=== PATIENT | male | born 1980 | race Caucasian/White ===

== ENCOUNTER 2018-05-16 09:49 | Inpatient (IN) | payer OTHER ==
[~2018-05-16] VITALS: Ht 180.3 cm; Wt 86.9 kg
[2018-05-16 09:51] VITALS: BP_SYST 146
--- NOTE | 2018-05-16 09:57 | NUR ---
Placed in room 1. Placed on clinical research monitor, blood pressure machine and pulse oximeter. To gown for exam. Side rails up. Report given to Julia GARCIA.
--- NOTE | 2018-05-16 10:10 | NUR ---
ER Dr. Abrams at bedside examining patient.
[2018-05-16] MEDS ORDERED: NACL 0.9% 1,000 ML IV ONE (10:15)
[2018-05-16] MEDS ORDERED: methylPREDNISolone SOD SUCC/PF 62.5 MG/ML VIAL IVP ONE (10:15)
[2018-05-16] MEDS ORDERED: MORPHINE 4 MG/ML INJ. SYRINGE IVP ONE ×2 (10:15→11:00)
[2018-05-16] MEDS ORDERED: DIPHENHYDRAMINE INJ 50 MG/ML VIAL IVP ONE ×2 (10:15→13:00)
[2018-05-16] MEDS ORDERED: PANTOPRAZOLE SODIUM 40 MG/VIAL (PROTONIX) IVP ONE (10:15)
--- NOTE | 2018-05-16 10:15 | NUR ---
Pt presents to ED c/o abdmonal pain and itchiness from allergic reaction. Pt h/o anxiety and GI bleed and allergy to exposure to peanuts.
[2018-05-16 10:52] LABS: BASOPHILS # (AUTO) 0.1 K/uL (0.0-0.2); EOSINOPHILS % (AUTO) 0.2 % (0.0-4.0); HEMOGLOBIN 8.7 g/dL (14.0-18.0); LYMPHOCYTES # (AUTO) 1.5 K/uL (1.0-5.5); LYMPHOCYTES % (AUTO) 16.3 % (20.5-51.5); MEAN CORPUSCULAR HEMOGLOBIN 26 pg (27-31); MEAN CORPUSCULAR HGB CONC 32 % (32-36); MEAN CORPUSCULAR VOLUME 80 fL (79.0-98.0); MONOCYTES # (AUTO) 0.7 K/uL (0.0-1.0); MONOCYTES % (AUTO) 7.4 % (1.7-9.3); NEUTROPHILS # (AUTO) 7.1 K/uL (1.8-7.7); NEUTROPHILS % (AUTO) 75.1 % (40.0-70.0); PLATELET COUNT (AUTO) 275 K/uL (130-430); RED BLOOD CELL COUNT(AUTO) 3.38 MIL/uL (4.2-6.2); RED CELL DISTRIBUTION WIDTH 14.6 % (9.0-15.0); WHITE BLOOD COUNT (AUTO) 9.4 K/uL (4.8-10.8)
[2018-05-16 10:58] LABS: PROTHROMBIN TIME 9.7 SECS (9.5-12.5)
[2018-05-16 11:00] LABS: CALCIUM 8.7 mg/dL (8.4-11.0); CREATININE 0.82 mg/dL (0.55-1.30); POTASSIUM 3.1 mmol/L (3.5-5.1)
--- NOTE | 2018-05-16 11:00 | NUR ---
Pt medicate for painand allergic reaction.
[2018-05-16 11:05] LABS: ALBUMIN 3.4 g/dL (3.4-4.8); TOTAL BILIRUBIN 0.3 mg/dL (0.0-1.0)
[2018-05-16] MEDS ORDERED: LORazepam 2 MG/ML VIAL (FOR ER USE) IVP ONE ×2 (12:00→13:00)
--- NOTE | 2018-05-16 12:00 | NUR ---
Pt medicated for pain and anxiety. Pt tolerated well.Continuing to monitor.
[2018-05-16] MEDS ORDERED: POTASSIUM CHLORIDE 40 MEQ in NS 250 ML IV ONE (12:15)
--- NOTE | 2018-05-16 12:20 | NUR ---
Patient will be admitted to care of . Admitted to Telemetry unit. Will go to room 126B. Belongings list completed. Summary report printed. Report will be given at bedside.
[2018-05-16] MEDS ORDERED: MORPHINE 2 MG/ML INJ. SYRINGE IVP ONE ×2 (12:30→14:15)
[2018-05-16 13:20] LABS: BILIRUBIN,URINE NEGATIVE (NEGATIVE); BLOOD, URINE NEGATIVE (NEGATIVE); CLARITY/URINE CLEAR (CLEAR); COLOR,URINE YELLOW (YELLOW); GLUCOSE,URINE NEGATIVE (NEGATIVE); KETONES,URINE NEGATIVE (NEGATIVE); LEUKOCYTE ESTERASE ,URINE NEGATIVE (NEGATIVE); NITRITE, URINE NEGATIVE (NEGATIVE); PROTEIN URINE NEGATIVE (NEGATIVE); UROBILINOGEN,URINE 0.2 (0.2-1.0)
[2018-05-16 13:42] LABS: BENZODIAZEPINE, URINE POSITIVE (NEG <=150); OPIATE, URINE POSITIVE (NEG <=100)
[2018-05-16 13:43] LABS: BARBITURATE, URINE NEGATIVE (NEG <=200); CANNABINOID, URINE NEGATIVE (NEG <=50); COCAINE, URINE NEGATIVE (NEG <=150); METHAMPHETAMINES SCREEN,URINE NEGATIVE (NEG <=500); PHENCYCLIDINE SCREEN,URINE NEGATIVE (NEG <=25); UR TRICYCLIC ANTIDEPRESSANTS NEGATIVE (NEG <=300); URINE AMPHETAMINE NEGATIVE (NEG <=500); URINE METHADONE NEGATIVE (NEG <=200); URINE OXYCODONE SCREEN NEGATIVE (NEG <=100); URINE PROPOXYPHENE SCREEN NEGATIVE (NEG <=300)
--- NOTE | 2018-05-16 13:43 | NUR ---
ADMISSION NOTE Received patient from ER via gurney. Patient admitted with diagnosis of upper and lower gi bleed and anemia. Patient is awake, alert, oriented X4. Patient oriented to hospital room, call light, toileting, pain management and safety-teach back done. Personal belongings checked and Belongings List documented. Call light within reach.
--- NOTE | 2018-05-16 13:44 | NUR ---
INITIAL NOTE RECEIVED PT IN BED, NO S/S OF DISTRESS OR SOB NOTED, PT HAS PAIN IN ABDOMEN /10, STABBING, PT IN STABLE CONDITION, C/O ANXIETY AND FEELING LIKE THROAT IS CLOSING, PT ABLE TO SPEAK WITH NO DIFFICULTY, NO RASH OR REDNESS OR SWELLING NOTED ON NECK OR FACE. PT ANGRY AND UNCOOPERATIVE WITH ASSESSMENT FROM NURSE. ATTEMPTED TO DISCUSS POC WITH PT BUT HE KEEPS INTERRUPTING NURSE AND USING FOUL LANGUAGE, ANGRY. BED AT LOWEST POSITION, CALL LIGHT WITHIN REACH, SAFETY PRECAUTIONS IN PLACE, NO ACTIVE BLEEDING NOTED AT THIS TIME.
--- NOTE | 2018-05-16 13:45 | NUR ---
CALL DR JOANIE HILL, AWAITING CALL BACK FOR ORDERS. Addendum: 05/16/18 at 1348 by Macie Ramirez RN SPOKE WITH MADE AWARE OF H/H PER MD TO HOLD OFF ON BLOOD TRANSFUSION AND MAKE PT ON NPO.
[2018-05-16 13:46] VITALS: BP_SYST 143
--- NOTE | 2018-05-16 14:02 | NUR ---
CONSULT GI GI BLEED DR AGARWAL [phone] DR SMITH FILE SYSTEM INSTALLER S/W [facility] OFFICE @[id number]
--- NOTE | 2018-05-16 14:16 | NUR ---
MD CALL SPOKE WITH DR NAIR ABOUT PAIN AND PT STATING HIS THROAT IS CLOSING AND HE IS ANXIOUS, MD GAVE ORDER FOR MORPHINE 2 MG TIMES ONE AND THAT SHE WOULD PUT THE REST OF THE ORDERS IN.
[2018-05-16] MEDS ORDERED: ALPR2TAB2 PO (14:18)
[2018-05-16] MEDS ORDERED: SERT50TA PO (14:18)
[2018-05-16] MEDS ORDERED: MORPHINE 2 MG/ML INJ. SYRINGE ONE (14:18)
[2018-05-16] MEDS ORDERED: MORPHINE 2 MG/ML INJ. SYRINGE IVP PRN (14:30)
[2018-05-16] MEDS ORDERED: LORazepam 2 MG/ML VIAL IM PRN (14:30)
[2018-05-16] MEDS ORDERED: ONDANSETRON HCL 4 MG/2 ML VIAL IVP PRN (14:30)
--- NOTE | 2018-05-16 14:55 | NUR ---
MD CALL RESOURCE NURSE SPOKE WITH DR NAIR AND EXPLAINED TO HER THAT PER PT THE PAIN MEDICATION WAS NOT WORKING AND THAT HE WAS STILL FEELING ANXIOUS AND IN PAIN 8/10, STABBING ON ABDOMEN AND THAT HE STILL FELT LIKE HIS THROAT WAS CLOSING, PER MD SHE WILL ORDER BENADRYL WHEN SHE SEES PT AND ORDERED DILAUDID PRN AND WILL CHANGE THE ATIVAN TO IV INSTEAD OF IM IN ORDER. PT VVS, SATURATION OF 98% ROOM, NO S/S OF DISTRESS OR SOB NOTED, NO RASH OR REDNESS ON BODY. PT TALKING AND AAOX4.
--- NOTE | 2018-05-16 14:58 | NUR ---
PICTURES PT REFUSED TO HAVE PICTURES TAKEN OF HIS LEFT EYE, EXPLAINED TO HIM WHY WE TAKE PICTURES PER POLICY BUT PT STATED,"THAT IS NOT WHY I AM HERE, I AM HERE FOR STOMACH PAIN, I DO NOT WANT MY PICTURE TAKEN." CHARGE NURSE AWARE.
[2018-05-16] MEDS: KCL 20 mEq in D5/0.45NS 1000mL 1,000 ML IV SCH (15:32)
[2018-05-16] MEDS: HYDROmorphone 1 MG INJ. 1 MG/ML AMPUL IVP PRN ×3 (15:32→23:25)
--- NOTE | 2018-05-16 15:37 | NUR ---
EDUCATION PROVIDED PT WITH EDUCATION ON SIDE EFFECTS OF PAIN MEDICATION, DILAUDID AND PT VERBALIZED UNDERSTANDING.
--- NOTE | 2018-05-16 16:11 | NUR ---
ANXIETY PT C/O ANXIETY, STATED HE FEELS ANXIOUS AND UNABLE TO SIT STILL, PER PT PAIN IS MUCH BETTER /10, ADMINISTERED PRN ATIVAN ORDERED PER MD, WILL CONTINUE TO MONITOR PT FOR ANY CHANGES, VSS, BP 132/80, PULSE 87, SATURATION OF 98% ROOM AIR.
[2018-05-16] MEDS ORDERED: LORazepam 2 MG/ML VIAL ONE (16:13)
[2018-05-16 16:16] VITALS: BP_SYST 142
--- NOTE | 2018-05-16 16:40 | NUR ---
ROUNDS PT IN BED, NO S/S OF DISTRESS OR SOB NOTED, PT HAS NO C/O PAIN AT THIS TIME, PT IN STABLE CONDITION, PT RESTING COMFORTABLY, WILL CONTINUE TO MONITOR PT FOR ANY CHANGES. PT STATED HE NO LONGER FEELS ANXIOUS AND IS FEELING BETTER.
--- NOTE | 2018-05-16 16:50 | NUR ---
ROUNDS DR JOANIE GARNICA, AWARE OF PATIENTS CONDITION, WENT TO SPEAK WITH PT.
[2018-05-16] MEDS ORDERED: DIPHENHYDRAMINE INJ 50 MG/ML VIAL IVP PRN (17:30)
[2018-05-16] MEDS ORDERED: ACETAMINOPHEN 650 MG SUPP.RECT RC PRN (17:30)
--- NOTE | 2018-05-16 17:44 | NUR ---
IV FLUIDS PT WANTED THE IV FLUIDS STOPPED DUE TO PAIN FROM POTASSIUM, EXPLAINED TO PT THE IMPORTANCE OF IV FLUIDS AND PT VERBALIZED UNDERSTANDING BUT CONTINUES TO REFUSE.
--- NOTE | 2018-05-16 17:51 | NUR ---
ITCHING AND THROAT CLOSING FEELING PT STATED THAT HE FELT LIKE HIS THROAT WAS CLOSING, NOTED NO RASH, NO REDNESS, SATURATION OF 98% ROOM AIR AND PT HAS NO S/S OF DISTRESS OR SOB NOTED, PT TALKING. WILL CONTINUE TO MONITOR PT FOR ANY CHANGES. Addendum: 05/16/18 at 1840 by Macie Ramirez RN [id number] PER PT HE FEELS BETTER, NO MORE ITCHING OF THROAT OR CLOSING OF THROAT.
[2018-05-16] MEDS: PANTOPRAZOLE SODIUM 40 MG in NS 50 ML IV SCH ×2 (18:35→23:24)
--- NOTE | 2018-05-16 18:45 | NUR ---
MD CALL DR JOANIE HILL, AWAITING CALL BACK PT C/O PAIN OF 06/02 AND THAT PAIN MEDICATION IS NOT WORKING AND THAT HE WANTS AN INCREASE IN HIS BENADRYL DOSAGE TO EVERY 4 HOURS AND NOT EVERY 8 HOURS.
--- NOTE | 2018-05-16 18:56 | NUR ---
CLOSING NOTE PT IN BED, NO S/S OF DISTRESS OR SOB NOTED, PT HAS PAIN IN ABDOMEN 8/10, STABBING, PT IN STABLE CONDITION, PT ANGRY. BED AT LOWEST POSITION, CALL LIGHT WITHIN REACH, SAFETY PRECAUTIONS IN PLACE, NO ACTIVE BLEEDING NOTED AT THIS TIME. WILL ENDORSE CARE OF PT TO INCOMING NURSE. AWAITING CALL BACK FROM DR NAIR FOR PAIN MEDICATIONS.
[2018-05-16 20:00] VITALS: BP_SYST 126
--- NOTE | 2018-05-16 20:00 | NUR ---
Initial Notes Received patient resting in bed, awake, alert, oriented. Patient denies any acute distress at this time. Medicated patient for pain per MD orders. Vital signs stable. Breathing is even and unlabored on room air. IV site patent/clean/dry. Needs addressed. Educated patient regarding use of call light for assistance and fall precautions, patient verbalized understanding. Call light in hand, will continue to monitor. S/W Dr. Iqbal on telephone regarding patient's request to increase dose or frequency of medication Benadryl. changed Benadryl frequency to [id number].
--- NOTE | 2018-05-16 22:00 | NUR ---
Nursing Notes Patient resting in bed with eyes closed at this time. Breathing is even and unlabored. IV site patent/clean/dry. Call light in hand, fall precautions in place. Will continue to monitor.
[2018-05-16] MEDS: DIPHENHYDRAMINE INJ 50 MG/ML VIAL IVP PRN (23:24)
--- NOTE | 2018-05-17 | NUR ---
Nursing Notes Patient resting in bed, awake. Patient denies any acute distress at this time. Medicated patient for pain per MD order. IV site patent/clean/dry. Patient verbalized understanding of NPO status for procedure in AM. Call light in hand, fall precautions in place, will continue to monitor.
[2018-05-17] MEDS: LORazepam 2 MG/ML VIAL IVP PRN ×3 (00:10→19:58)
[2018-05-17 00:34] VITALS: BP_SYST 129
[2018-05-17] MEDS: KCL 20 mEq in D5/0.45NS 1000mL 1,000 ML IV SCH ×2 (01:47→10:17)
--- NOTE | 2018-05-17 02:00 | NUR ---
Nursing Notes Patient resting in bed with eyes closed. No acute distress noted, breathing is even and unlabored. IV site patent/clean/dry. Call light in hand, fall precautions in place.
[2018-05-17] MEDS: HYDROmorphone 1 MG INJ. 1 MG/ML AMPUL IVP PRN ×5 (03:28→21:26)
[2018-05-17] MEDS: PANTOPRAZOLE SODIUM 40 MG in NS 50 ML IV SCH ×5 (03:32→23:25)
--- NOTE | 2018-05-17 04:00 | NUR ---
Nursing Notes Patient resting in bed with eyes closed, easily aroused. Patient denies any acute distress. Breathing is even and unlabored. IV site patent/clean/dry. Call light in hand, fall precautions in place. Will continue to monitor for changes and safety.
[2018-05-17 06:32] LABS: BASOPHILS % (AUTO) 0.1 % (0.0-2.0); EOSINOPHILS % (AUTO) 0.1 % (0.0-4.0); HEMATOCRIT 27.4 % (36-54); HEMOGLOBIN 8.7 g/dL (14.0-18.0); LYMPHOCYTES # (AUTO) 1.4 K/uL (1.0-5.5); LYMPHOCYTES % (AUTO) 16.4 % (20.5-51.5); MEAN CORPUSCULAR HEMOGLOBIN 26 pg (27-31); MEAN CORPUSCULAR HGB CONC 32 % (32-36); MEAN CORPUSCULAR VOLUME 81 fL (79.0-98.0); MONOCYTES # (AUTO) 0.8 K/uL (0.0-1.0); MONOCYTES % (AUTO) 9.3 % (1.7-9.3); NEUTROPHILS # (AUTO) 6.1 K/uL (1.8-7.7); NEUTROPHILS % (AUTO) 74.1 % (40.0-70.0); PLATELET COUNT (AUTO) 334 K/uL (130-430); RED CELL DISTRIBUTION WIDTH 14.7 % (9.0-15.0); WHITE BLOOD COUNT (AUTO) 8.3 K/uL (4.8-10.8)
[2018-05-17 06:33] LABS: PROTHROMBIN TIME 9.9 SECS (9.5-12.5)
[2018-05-17] MEDS ORDERED: DIPHENHYDRAMINE INJ 50 MG/ML VIAL ONE (06:37)
[2018-05-17] MEDS ORDERED: SIMETHICONE 40 MG/0.6 ML ML ONE (06:37)
[2018-05-17] MEDS ORDERED: MEPERIDINE HCL/PF 100 MG/ML AMP ONE ×2 (06:38→07:42)
[2018-05-17] MEDS ORDERED: fentaNYL CITRATE/PF 100 MCG/2 ML AMP ONE (06:38)
[2018-05-17] MEDS ORDERED: MIDAZOLAM HCL 5 MG/5 ML VIAL ONE (06:38)
--- NOTE | 2018-05-17 06:43 | NUR ---
Closing Notes Patient resting in bed with eyes closed, easily aroused. Patient in no acute distress or pain at this time. Breathing is even and unlabored. IV site patent/clean/dry, no S/S infection/infiltration noted. Needs addressed throughout shift. Call light in hand, fall precautions in place. Will continue to monitor for changes and safety, and endorse all patient care/needs to oncoming nurse. No signs of active bleeding noted/reported throughout shift. Patient has been NPO since midnight for procedure this AM.
[2018-05-17 06:54] LABS: ALBUMIN 3.3 g/dL (3.4-4.8); CALCIUM 8.3 mg/dL (8.4-11.0); CREATININE 0.72 mg/dL (0.55-1.30); POTASSIUM 3.6 mmol/L (3.5-5.1); THYROID STIMULATING HORMONE 0.56 uIu/mL (0.34-4.82); TOTAL BILIRUBIN 0.4 mg/dL (0.0-1.0)
--- NOTE | 2018-05-17 07:40 | NUR ---
EGD PATIENT IN GI LAB FOR EGD.
[2018-05-17 08:00] VITALS: BP_SYST 128
--- NOTE | 2018-05-17 08:20 | NUR ---
NOTES PATIENT RETURNED FROM G.I. LAB. REPORT RECEIVED FROM TL RIVERA RN; PROCEDURE WAS UNSUCCESSFUL DUE TO PATIENT STILL AWAKE AND REFUSING DOCTOR TO PUT SCOPE IN HIS MOUTH. WILL TRY PROCEDURE AGAIN IN O.R. TOMORROW PER TL RIVERA RN. PATIENT AWARE. PATIENT SITTING UP IN BED. AWAKE. ALERT AND ORIENTED. ABLE TO MAKE NEEDS KNOWN. ROOM AIR. NO ACUTE DISTRESS. NO SOB. RESPIRATION EVEN AND UNLABORED. SKIN WARM AND DRY TO TOUCH. IV NOTED TO RIGHT FOOT INTACT AND PATENT WITH NO REDNESS NOTED. ORIENTED PATIENT TO CALL LIGHT AND TO USE FOR ASSIST, PT VERBALIZED UNDERSTANDING. ALL NEEDS MET. CALL LIGHT IN REACH. CONT TO MONITOR.
[2018-05-17] MEDS ORDERED: PANTOPRAZOLE SODIUM 40 MG/VIAL (PROTONIX) IVP SCH (09:00)
[2018-05-17] MEDS: POLYETHYLENE GLYCOL 3350, 17 GM/ POWD.PACK PO SCH (09:05)
[2018-05-17] MEDS: methylPREDNISolone SOD SUCC 40 MG/ML VIAL IVP SCH ×3 (09:06→21:25)
--- NOTE | 2018-05-17 09:10 | NUR ---
NOTES PATIENT AWAKE IN BED AND C/O SEVERE MID ABDOMEN PAIN AND DENIES ANY NAUSEA/VOMITING. PAIN MEDICATION ADMINISTERED ORDERED, TEAGAN WELL. ALL NEEDS MET. CONT TO MONITOR.
--- NOTE | 2018-05-17 10:30 | NUR ---
NOTES PATIENT C/O ANXIETY THINKING ABOUT EGD PROCEDURE; MEDICATION ADMINISTERED ORDERED. REASSURED PATIENT AND MADE PATIENT AWARE TO ASK ANY QUESTIONS TOMORROW BEFORE PROCEDURE; PATIENT BECAME LESS ANXIOUS. ALL NEEDS MET. CALL LIGHT IN REACH. CONT TO MONITOR. WITH FREQUENT VISUAL CHECKS.
--- NOTE | 2018-05-17 12:00 | NUR ---
Case mgt: No anticipated dc planning at this time. Pt lives at home with family but family is in [place] for a few more days due to his father's 3 weeks ago. Pt was insisting that our hospital would dispense his discharge medications (if RX given at dc). I explained our hospital is not licensed to dispense/ fill RX for discharged pts and he would need to take it to his pharmacy. He said his mother is a pain doctor at [facility] and he will get her involved if necessary. I gave him my business card if he has questions. VIGNESH GARCIA
[2018-05-17] MEDS: DIPHENHYDRAMINE INJ 50 MG/ML VIAL IVP PRN ×3 (12:11→23:25)
[2018-05-17 13:07] VITALS: BP_SYST 124
--- NOTE | 2018-05-17 13:15 | NUR ---
PAIN PATIENT AWAKE IN BED AND C/O SEVERE MID ABDOMEN PAIN AND DENIES ANY NAUSEA/VOMITING. VITAL SIGN STABLE. PAIN MEDICATION ADMINISTERED ORDERED, TEAGAN WELL. ALL NEEDS MET. CONT TO MONITOR.
--- NOTE | 2018-05-17 14:30 | NUR ---
PATIENT SEEN BY AT BEDSIDE. WILL ORDER PSYCH CONSULT FOR ANXIETY
[2018-05-17] MEDS ORDERED: ALPRAZolam 0.25 MG TABLET PO ONE (14:45)
--- NOTE | 2018-05-17 14:45 | NUR ---
STOOL OB STOOL COLLECTED FOR OB AND SUBMITTED TO LAB. STOOL WAS BROWN AND FORMED.
--- NOTE | 2018-05-17 16:30 | NUR ---
IV PATIENT SUGGESTED IV SITE TO RIGHT FOOT IS NOT WORKING DUE TO ALL PRN MEDICATIONS THAT HE HAS RECEIVED THROUGH IV IS INEFFECTIVE DUE TO IT HAS NOT CAUSED HIM TO BE DROWSY/SLEEPY. CHECKED IV. IV INTACT AND PATENT AND FLUSHES FREELY WITH GOOD BLOOD RETURN. PATIENT DENIED ANY PAIN TO IV SITE WHEN FLUSHING IV. NO SWELLING AND NO REDNESS NOTED TO SITE. ALL NEEDS MET. CONT TO MONITOR. CALL LIGHT IN REACH.
--- NOTE | 2018-05-17 16:47 | NUR ---
CONSULTATION PAGED REASON FOR CONSULTATION: Anxiety, Bipolar Disorder WAS CONSULT CALLED? y PERSON WHO WAS NOTIFIED: Christofer CONSULTING PHYSICIAN: Dr. Montemayor CONSULTING PHYSICIAN'S NUMBER: [phone] ORDERING PHYSICIAN: Dr. Iqbal
[2018-05-17 17:03] VITALS: BP_SYST 121
--- NOTE | 2018-05-17 17:25 | NUR ---
PAIN PATIENT AWAKE IN BED. VITAL SIGN STABLE. C/O SEVERE MID ABDOMEN PAIN AND DENIES ANY NAUSEA/VOMITING. PAIN MEDICATION ADMINISTERED ORDERED, TEAGAN WELL. ALL NEEDS MET. CONT TO MONITOR. CALL LIGHT IN REACH.
--- NOTE | 2018-05-17 19:00 | NUR ---
CLOSING NOTE PATIENT AWAKE IN BED WATCHING TV. NO ACUTE DISTRESS. NO SOB. RESPIRATION EVEN AND UNLABORED. SKIN WARM AND DRY TO TOUCH. IV TO RIGHT FOOT INTACT AND PATENT WITH NO S/SX INFECTION/INFILTRATION NOTED WITH GOOD BLOOD RETURN AND FLUSHES FREELY. ALL NEEDS MET. DISCUSSED PLAN OF CARE WITH PATIENT REGARDING EGD AND TO BE NPO AFTER MIDNIGHT; PATIENT VERBALIZED UNDERSTANDING. CALL LIGHT IN REACH. CONT TO MONITOR. WILL ENDORSE TO ONCOMING SHIFT.
--- NOTE | 2018-05-17 19:40 | NUR ---
ROUNDS PATIENT IN BED, AWAKE, ALERT, ORIENTED X4, VITALS STABLE, CLAIMED TO HAVE ABD. PAIN AT THIS TIME. ASSESSMENT DONE AND DOCUMENTED. SEE FLOWSHEET. IV SITE PATENT ON THE RIGHT FOOT G. 20, NO SIGNS OF INFILTRATION NOTED. NEEDS ATTENDED TO. SAFETY AND FALL PRECAUTION MEASURES IN PLACED. BED IN LOW AND LOCKED POSITION. CALL LIGHT PLACED WITHIN REACH.
--- NOTE | 2018-05-17 22:15 | NUR ---
NOTES PATIENT WATCHING TV AT THIS TIME, VITALS STABLE, WILL CONTINUE TO MONITOR.
--- NOTE | 2018-05-18 00:05 | NUR ---
PATIENT RESTING: Patient resting quietly. No acute distress noted. Vital signs within normal range.
[2018-05-18 00:30] VITALS: BP_SYST 114
[2018-05-18] MEDS: HYDROmorphone 1 MG INJ. 1 MG/ML AMPUL IVP PRN ×6 (01:27→13:06)
[2018-05-18] MEDS: KCL 20 mEq in D5/0.45NS 1000mL 1,000 ML IV SCH ×2 (01:30→09:17)
--- NOTE | 2018-05-18 03:00 | NUR ---
NOTES PATIENT RESTING AT THIS TIME, NO SOB NOTED, WILL CONTINUE TO MONITOR.
[2018-05-18] MEDS: LORazepam 2 MG/ML VIAL IVP PRN (03:33)
[2018-05-18] MEDS: DIPHENHYDRAMINE INJ 50 MG/ML VIAL IVP PRN ×4 (05:21→22:16)
--- NOTE | 2018-05-18 06:30 | NUR ---
CLOSING NOTES PATIENT STABLE, TAKEN TO O.R. FOR HIS SCHEDULED EGD TODAY, ALL NEEDS ATTENDED TO. SAFETY AND FALL MEASURES MAINTAINED. WILL ENDORSE TO INCOMING SHIFT NURSE.
[2018-05-18] MEDS ORDERED: LR 1,000 ML IV.SOLN IV ONE (07:06)
[2018-05-18] MEDS ORDERED: MEPERIDINE HCL/PF 50 MG/ML AMP ONE (07:06)
[2018-05-18] MEDS ORDERED: MIDAZOLAM HCL 5 MG/ML VIAL (VERSED) IV ONE (07:06)
[2018-05-18] MEDS ORDERED: PROPOFOL 200MG/ 20ML VIAL (DIPRIVAN) IV ONE (07:06)
[2018-05-18] MEDS ORDERED: LIDOCAINE 1% 10 MG/ML, 20 ML MDV ONE (07:06)
[2018-05-18] MEDS ORDERED: fentaNYL CITRATE/PF 100 MCG/2 ML AMP ONE (07:06)
[2018-05-18] MEDS ORDERED: MIDAZOLAM HCL 5 MG/5 ML VIAL IVP PRN (07:15)
[2018-05-18] MEDS ORDERED: ONDANSETRON HCL 4 MG/2 ML VIAL IVP ONE (07:15)
[2018-05-18] MEDS ORDERED: fentaNYL CITRATE/PF 100 MCG/2 ML AMP IVP PRN (07:15)
[2018-05-18] MEDS ORDERED: KETOROLAC TROMETHAMINE 30 MG VIAL IVP ONE (07:15)
[2018-05-18] MEDS ORDERED: NALOXONE HCL 0.4 MG/ML AMP (NARCAN) IVP ONE (07:15)
[2018-05-18 07:16] LABS: CALCIUM 8.8 mg/dL (8.4-11.0); CREATININE 0.85 mg/dL (0.55-1.30); POTASSIUM 4.2 mmol/L (3.5-5.1)
[2018-05-18 07:18] LABS: RED CELL DISTRIBUTION WIDTH 14.4 % (9.0-15.0)
[2018-05-18] MEDS ORDERED: HYDROmorphone 1 MG INJ. 1 MG/ML AMPUL ONE ×2 (07:19→07:33)
[2018-05-18 07:41] LABS: LYMPHOCYTES # (AUTO) 1.9 K/uL (1.0-5.5); MEAN CORPUSCULAR VOLUME 79 fL (79.0-98.0)
[2018-05-18] MEDS ORDERED: DIPHENHYDRAMINE INJ 50 MG/ML VIAL ONE (07:54)
[2018-05-18] MEDS ORDERED: DIPHENHYDRAMINE INJ 50 MG/ML VIAL IVP ONE ×2 (08:00→12:45)
[2018-05-18 08:18] LABS: BASOPHILS % (AUTO) 0.1 % (0.0-2.0); EOSINOPHILS % (AUTO) 0.6 % (0.0-4.0); HEMATOCRIT 29.5 % (36-54); HEMOGLOBIN 9.4 g/dL (14.0-18.0); LYMPHOCYTES % (AUTO) 25.7 % (20.5-51.5); MEAN CORPUSCULAR HEMOGLOBIN 25 pg (27-31); MEAN CORPUSCULAR HGB CONC 32 % (32-36); MONOCYTES # (AUTO) 0.9 K/uL (0.0-1.0); MONOCYTES % (AUTO) 11.6 % (1.7-9.3); NEUTROPHILS # (AUTO) 4.7 K/uL (1.8-7.7); PLATELET COUNT (AUTO) 353 K/uL (130-430); RED BLOOD CELL COUNT(AUTO) 3.74 MIL/uL (4.2-6.2); WHITE BLOOD COUNT (AUTO) 7.5 K/uL (4.8-10.8)
--- NOTE | 2018-05-18 08:20 | NUR ---
PATIENT HAS BEEN RETURNED TO THE FLOOR; BUT HE IS SCREAMING " I WANT FOOD !" WILL OFFER FOOD IF HE CAN TOLERATE DIET.
[2018-05-18] MEDS: methylPREDNISolone SOD SUCC 40 MG/ML VIAL IVP SCH (09:00)
[2018-05-18] MEDS: PANTOPRAZOLE SODIUM 40 MG TAB PO SCH ×2 (09:27→21:34)
[2018-05-18] MEDS: POLYETHYLENE GLYCOL 3350, 17 GM/ POWD.PACK PO SCH (09:28)
--- NOTE | 2018-05-18 10:30 | NUR ---
PATIENT'S HR IS AT 130S-150S, ST. DR. NAIR IS NOTIFIED.
[2018-05-18] MEDS ORDERED: ALPRAZolam 0.25 MG TABLET PO ONE (10:45)
--- NOTE | 2018-05-18 12:55 | NUR ---
IV CAME OUT ON THE FOOT. PERMISSION IS OBTAINED FROM DR. NAIR TO RESTART IV AT THE FOOT. #24 IS PLACED, INTACT AND PATENT.
[2018-05-18 12:56] VITALS: BP_SYST 127
[2018-05-18] MEDS ORDERED: SERTRALINE HCL 50 MG TABLET PO ONE (13:15)
--- NOTE | 2018-05-18 14:10 | NUR ---
PATIENT IS C/O ABDOMINAL PAIN, 05/02. DR. NAIR IS CALLED.
--- NOTE | 2018-05-18 14:29 | NUR ---
PATIENT IS C/O ABDOMINAL PAIN, 06/02. DR. NAIR IS CALLED.
--- NOTE | 2018-05-18 15:03 | NUR ---
ATTENDING MD DR NAIR WAS PAGED RE: INCREASE PAIN MEDS. SPOKE TO HEAVEN
--- NOTE | 2018-05-18 15:11 | NUR ---
GI MD DR HAMMER WAS PAGED RE,: STOMACH PAIN. SPOKE TO ELIAS
[2018-05-18] MEDS ORDERED: HYDROmorphone 2 MG/ML VIAL ONE (16:01)
--- NOTE | 2018-05-18 16:05 | NUR ---
DR. NAIR ORDERED A NEW DOSAGE OF PAIN MEDS, THE PREVIOUS DOSAGE OF PAIN MEDS DO NOT WORK WELL. PATIENT RECEIVED THE MEDS; WILL REASSESS.
[2018-05-18 17:26] VITALS: BP_SYST 108
--- NOTE | 2018-05-18 18:53 | NUR ---
POC IS REVIEWED WITH THE PATIENT. PATIENT VERBALIZED UNDERSTANDING.
--- NOTE | 2018-05-18 19:25 | NUR ---
OPENING NOTE Patient resting on the bed. No acute distress. Respiration even and unlabored. AAO x 4. Skin warm and dry to touch. IV intact to left foot, no redness, no swelling, no drainage. On KCl 20mEq in D5 1/2NDS at 50ml/hr, infusing well. Discussed the safety issue, use call light when need help, and plan of care, verbally understanding. Safety measure maintained. Bed locked in low position, side rails up, bed alarm on. Call light within reached. Will continue to monitor.
[2018-05-18 20:00] VITALS: BP_SYST 134
[2018-05-18] MEDS: HYDROmorphone 2 MG/ML VIAL IVP PRN (20:07)
--- NOTE | 2018-05-18 20:07 | NUR ---
DILAUDID GIVEN Patient c/o abdomen pain 06/02, Dilaudid 2mg IVP given as ordered. No acute distress. Respiration even and unlabored. Safety measure maintained. Bed locked in low position, side rails up, bed alarm on. Call light within reached. Continue to monitor.
[2018-05-18] MEDS ORDERED: ALPRAZolam 0.25 MG TABLET PO SCH (21:00)
[2018-05-18] MEDS: ALPRAZolam 0.25 MG TABLET PO SCH (21:34)
--- NOTE | 2018-05-18 22:16 | NUR ---
BENADRYL GIVEN Patient c/o itching, Benadryl 25mg IVP given as ordered. No acute distress. Safety measure maintained. Bed locked in low position, side rails up, bed alarm on. Call light within reached. Continue to monitor.
[2018-05-18 23:55] VITALS: BP_SYST 117
[2018-05-19] MEDS: HYDROmorphone 2 MG/ML VIAL IVP PRN ×5 (00:06→15:27)
--- NOTE | 2018-05-19 00:06 | NUR ---
DILAUDID GIVEN Patient c/o abdomen pain 06/02, Dilaudid 2mg IVP given as ordered. No acute distress. IV intact, IVF infusing well. Safety measure maintained. Bed locked in low position, side rails up, bed alarm on. Call light within reached. continue to monitor.
[2018-05-19] MEDS: KCL 20 mEq in D5/0.45NS 1000mL 1,000 ML IV SCH (01:14)
--- NOTE | 2018-05-19 02:20 | NUR ---
ROUND Patient resting on the bed with eyes closed. No acute distress. Respiration even and dry to touch. IV intact, IVF infusing well. Safety measure maintained. Bed locked in low position, side rails up, bed alarm on. Call light within reached. Continue to morning.
[2018-05-19 04:00] VITALS: BP_SYST 119
[2018-05-19] MEDS: DIPHENHYDRAMINE INJ 50 MG/ML VIAL IVP PRN ×3 (04:08→15:25)
--- NOTE | 2018-05-19 04:08 | NUR ---
DILAUDID AND BENADRYL GIVEN Patient c/o abdomen pain 07/03, Dilaudid 2mg IVP and Benadryl 25mg IVP given as ordered. No acute distress. IV intact, IVF infusing well. Safety measure maintained. Bed locked in low position, side rails up, bed alarm on. Call light within reached. Continue to monitor.
--- NOTE | 2018-05-19 06:45 | NUR ---
CLOSING NOTE Patient resting on the bed. No acute distress. Respiration even and unlabored. AAO x 4. PRN pain med given around clock. Skin warm and dry to touch. IV intact to left foot, no redness, no swelling, no drainage. IVF infusing well. Hourly rounding during shift. Safety measure maintained. Bed locked in low position, side rails up, bed alarm on. Call light within reached. Will endorse to morning shift nurse.
[2018-05-19 07:00] LABS: ALBUMIN 3.1 g/dL (3.4-4.8); CALCIUM 8.3 mg/dL (8.4-11.0); CREATININE 0.88 mg/dL (0.55-1.30); POTASSIUM 4.1 mmol/L (3.5-5.1); TOTAL BILIRUBIN 0.2 mg/dL (0.0-1.0)
[2018-05-19 08:04] VITALS: BP_SYST 133
--- NOTE | 2018-05-19 08:15 | NUR ---
OPENING NOTE: MORNING REPORT WAS TAKEN FROM ADMINISTRATIVE COORDINATOR NURSE. VITALS AND MORNING ASSESSMENT WAS DONE. PATIENT IS IN BED COMPLAINING OF PAIN IN ABDOMEN. GAVE PATIENT PAIN MEDICATION. PATIENT HAS FLUIDS INFUSING INTO IV ON FOOT. PATIENT ON ROOM AIR NOT COMPLAINING OF SHORTNESS OF BREATH. PATIENT NOT COMPLAINING OF NAUSEA/VOMITING OR CONSTIPATION. PATIENT HAS A LITTLE COUGH FROM EATING A PEANUT THE OTHER DAY, WHICH HE IS ALLERGIC TO. THROAT A LITTLE SWOLLEN AND ITCHY. EDUCATED PATIENT ON IMPORTANCE OF BED ALARM BUT PATIENT REFUSED TO HAVE IT ON. BED IN LOWEST POSITION WITH CALL LIGHT IN REACH. WILL CONTINUE TO MONITOR.
[2018-05-19] MEDS: ALPRAZolam 0.25 MG TABLET PO SCH (08:49)
[2018-05-19] MEDS: PANTOPRAZOLE SODIUM 40 MG TAB PO SCH (08:50)
[2018-05-19] MEDS: POLYETHYLENE GLYCOL 3350, 17 GM/ POWD.PACK PO SCH (08:56)
[2018-05-19] MEDS ORDERED: SERTRALINE HCL 50 MG TABLET PO SCH (09:00)
--- NOTE | 2018-05-19 09:45 | NUR ---
NOTE: GAVE PATIENT MORNING MEDICATIONS AND BENADRYL. PATIENT REFUSED MIRALAX BECAUSE HE SAID HE DOESNT FEEL CONSTIPATED. PATIENT ABLE TO SWALLOW MEDICATIONS BUT JUST BURNED PER PATIENT. WILL CONTINUE TO MONITOR.
--- NOTE | 2018-05-19 11:59 | NUR ---
NOTE: PATIENT WAS COMPLAINING OF SEVERE PAIN. GAVE PAIN MEDICATION. PATIENT HAS NO FURTHER REQUEST AT MOMENT. WILL CONTINUE TO MONITOR.
[2018-05-19 12:00] VITALS: BP_SYST 131
--- NOTE | 2018-05-19 14:24 | NUR ---
NOTE: WENT TO CHECK IN ON PATIENT. PATIENT WAS COMPLAINING OF PAIN. PAIN MEDICATIONS NOT DUE UNTIL 1600. TOLD HIM I WOULD CALL DR. NAIR BUT PATIENT SAID NOT TO AND THAT HE WANTS TO TALK TO HER WHEN SHE GETS IN. PATIENT GETTING IRRITABLE. WILL CONTINUE TO MONITOR.
[2018-05-19 16:00] VITALS: BP_SYST 129
--- NOTE | 2018-05-19 16:44 | NUR ---
NOTE: PATIENT WAS COMPLAINING OF PAIN SO WENT TO CHECK ON HIM. TOLD PATIENT I GAVE HIM PAIN MEDICATIONS ABOUT AN HOUR AGO. PATIENT SEEMED CONFUSED ON THE TIME. I HAD WRITTEN ON THE BOARD WHEN NEXT ONE IS DUE. DR. NAIR CAME IN AND PATIENT WAS BEING MEAN/RUDE TO DR. PATIENT SAID HIS HEAD WAS HURTING THEN SAID WHEN I GAVE PAIN MEDICATION. PATIENT THEN SAID HE WASNT IN PAIN. WAS GOING TO DISCHARGE PATIENT BUT PATIENT SAID HIS FAMILY WONT BE HOME UNTIL TUESDAY. WENT AND CALLED OUTSIDE OPERATOR CASSIA TO TALK TO PATIENT.
[2018-05-19] MEDS ORDERED: HYDROcodone/ACETAMIN 10-325 MG TAB PO ONE (17:15)
[2018-05-19 17:57] VITALS: BP_SYST 129
--- NOTE | 2018-05-19 18:10 | NUR ---
NOTE: TOOK PATIENT OFF TELE MONITOR AND DISCONNECTED FROM IV FLUIDS. HAD PATIENT SIGN DISCHARGE PAPER WORK BEFORE GIVING PAIN MEDICATIONS. PATIENT DIDNT WANT TO SIGN PAPER WORK AT FIRST BECAUSE HE WAS NOT HAPPY WITH THE PRESCRIPTIONS THAT DR. NAIR GAVE HIM. HE DIDNT WANT ALL THOSE MEDS PRESCRIBED JUST PAIN MEDICATION AND XANAX. PATIENT FINALLY SIGNED THOUGH AND PUT PAPER WORK IN CHART.
--- NOTE | 2018-05-19 18:25 | NUR ---
NOTE: WENT TO GIVE PATIENT NORCO PRESCRIBED BY DR NAIR BUT PATIENT REFUSED AND WANTED DILAUDID. NOT DUE YET AND DR NAIR SAID TO GIVE HIM THE NORCO THEN LET HIM LEAVE. PATIENT RAISING VOICE AND SAYING MEAN THINGS LIKE IM A BAD NURSE BECAUSE I DONT SIDE WITH HIM OR GIVE HIM WHAT HE WANTS. SECURITY WITH ME JUST IN CASE BECAUSE PATIENT KEEPS RAISING VOICE.
--- NOTE | 2018-05-19 18:32 | NUR ---
NOTE: PATIENT CALLED COMPUTER EQUIPMENT INSTALLER AND WENT IN TO TALK TO PATIENT. COMPUTER EQUIPMENT INSTALLER SAID TO CALL DR. NAIR AND HE WANTS TO HEAR FROM HER THAT SHE WANTS PATIENT OUT AFTER PAIN MEDICATION. PATIENT KEEPS DRAGGING TIME OUT TO LEAVE BECAUSE HE JUST WANTS MORE AND MORE MEDICATIONS. PATIENT AGREED EARLIER TO GET AN UBER AFTER PAIN MEDICATION BUT NOW CHANGES IT TO WANTING XANAX AND BENADRYL TOO.
--- NOTE | 2018-05-19 18:50 | NUR ---
PAGE CALLED FOR DR. NAIR. SPOKE TO AZUL, DIALED [phone].
--- NOTE | 2018-05-19 19:18 | NUR ---
2ND PAGE CALLED FOR DR. NAIR. SPOKE TO AZUL, DIALED [phone].
--- NOTE | 2018-05-19 19:40 | NUR ---
: DR. NAIR CALLED BACK. SAID TO GIVE 1 MG DILAUDID AND 1 MG XANAX SO THAT PATIENT CAN LEAVE HOME. SAID IT IS OKAY TO SEND PATIENT HOME AFTER MEDICATIONS ARE GIVEN. ENDORSED TO RETAIL MERCHANDISER TECHNICIAN NURSE AND SHE WILL GIVE SHIRA.
[2018-05-19] MEDS ORDERED: HYDROmorphone 1 MG INJ. 1 MG/ML AMPUL ONE (19:51)
[2018-05-19] MEDS ORDERED: ALPRAZolam 0.25 MG TABLET ONE (19:52)
[2018-05-19] MEDS ORDERED: HYDROmorphone 1 MG INJ. 1 MG/ML AMPUL IVP ONE (20:00)
[2018-05-19] MEDS ORDERED: ALPRAZolam 0.25 MG TABLET PO ONE (20:00)
--- NOTE | 2018-05-19 20:01 | NUR ---
DILAUDID/XANAX PATIENT IN BED, AWAKE, VITALS STABLE CLAIMED TO SEVERE GENERALIZED PAIN, 9/10 PAIN SCALE. DILAUDID 1 MG IV AND XANAX 1 MG PO GIVEN ORDERED BEFORE DISCHARGE HOME. TRANSITION OF CARE ALREADY DISCUSSED BY A.M. SHIFT NURSE. PATIENT IS READY TO BE DISCHARGE ORDERED. ALL NEEDS ATTENDED TO. IV ON THE LEFT FOOT D/CD. VITALS STABLE.
--- NOTE | 2018-05-19 20:25 | NUR ---
CLOSING NOTES PATIENT DISCHARGED VIA WHEELCHAIR BY A.[place]b NURSE PERFECTO WITH STABLE VITALS. NO COMPLAINTS AT THIS TIME. PATIENT NOT IN DISTRESS AND WITH STEADY GAIT. ALL NEEDS ATTENDED TO.
== END 2018-05-19 20:30 | disposition home or self-care (01) | DRG 379 ==
LOC: SED 09:49 → STU 11:55
PROVIDERS: ADMIT Internal Medicine; ATTEND Internal Medicine
PROC: 0DJ08ZZ Inspection of Upper Intestinal Tract, Via Natural or Artificial Opening Endoscopic (ICD-10-PCS; principal; 2018-05-17 07:15)
PROC: 0DB68ZX Excision of Stomach, Via Natural or Artificial Opening Endoscopic, Diagnostic (ICD-10-PCS; 2018-05-18)
DX: K29.01 Acute gastritis with bleeding (principal); E87.6 Hypokalemia; F32.9 Major depressive disorder, single episode, unspecified; F41.1 Generalized anxiety disorder; K59.00 Constipation, unspecified; D50.0 Iron deficiency anemia secondary to blood loss (chronic); K29.70 Gastritis, unspecified, without bleeding; N20.0 Calculus of kidney; T78.1XXA Other adverse food reactions, not elsewhere classified, initial encounter; X58.XXXA Exposure to other specified factors, initial encounter; Z53.9 Procedure and treatment not carried out, unspecified reason; Z91.010 Allergy to peanuts; Z88.8 Allergy status to other drugs, medicaments and biological substances; Z79.899 Other long term (current) drug therapy
CPT/HCPCS: 36415; 43235; 71045; 80048; 80053; 80307; 81003; 82272; 83605; 83690-TC; 83735-TC; 84443-TC; 85018-TC; 85025; 85610-TC; 86886; 86900; 86901; 86920; 87040-TC; 87081; 88305; 88312; 88313; 93005; 96365; 96375; 96376; 99285; C9113; G0482; J1030; J1170; J1200; J2001; J2060; J2175; J2250; J2270; J2405; J2704; J2930; J3010; J3480; J7050; J7120